=== PATIENT | female | born 1990 | race Native Hawaiian/Other Pacific Islander ===

== ENCOUNTER 2018-06-24 13:54 | Outpatient (CLI) | payer OTHER | END 2018-06-24 21:44 | disposition home or self-care (01) | LOC: RAD 13:54 | DX: M25.522 Pain in left elbow (principal) ==

== ENCOUNTER 2018-07-01 13:54 | Outpatient (CLI) | payer OTHER | END 2018-07-01 20:53 | disposition home or self-care (01) | LOC: RAD 13:54 | DX: M25.522 Pain in left elbow (principal) ==

== ENCOUNTER 2018-07-29 14:07 | Outpatient (CLI) | payer OTHER | END 2018-07-29 23:32 | disposition home or self-care (01) | LOC: RAD 14:07 | DX: M25.522 Pain in left elbow (principal) ==